=== PATIENT | male | born 1945 ===

== ENCOUNTER 2018-10-09 09:10 | Outpatient (CLI) | payer OTHER | END 2018-10-09 09:11 | disposition home or self-care (01) | LOC: RX STUDY 09:10 | DX: R13.19 Other dysphagia (principal) ==

== ENCOUNTER 2021-05-04 11:14 | Outpatient (CLI) | payer OTHER | END 2021-05-04 11:21 | disposition home or self-care (01) | LOC: SONOGRAMA 11:14 | PROVIDERS: ATTEND Physical Medicine & Rehabilitation | DX: S43.401D Unspecified sprain of right shoulder joint, subsequent encounter (principal) ==